=== PATIENT | male | born 1960 | race African-American/Black ===

== ENCOUNTER → 2021-10-31 | Outpatient (CLI) | payer BC ==
[~2021-10-31] MED LIST: AMLODIPINE BESYL5 MG PO; DOSS PO; FINASTERIDE5 MG PO; FISH OIL 1,0001 EAC3 PO; FISH OIL 1,0001 EACH PO; FLOMAX0.4 MG PO; LISINOPRIL10 MG PO; LISINOPRIL20 MG PO; NAPROSYN500 MG PO; NORCO 7.5-3251 EACH PO; NORVASC 5 MG TAB5 MG PO; PROSCAR PO; PROSCAR5 MG PO; SIMVASTATIN20 MG PO; TAMSULOSIN HCL0.4 MG PO; ZOCOR40 MG PO; ZOFRAN4 MG PO
== END ==
LOC: EXRD 13:29
DX: R06.00 Dyspnea, unspecified (principal); R91.8 Other nonspecific abnormal finding of lung field; U07.1 COVID-19; J12.82 Pneumonia due to coronavirus disease 2019
CPT/HCPCS: 71046; 94060; 94729; 95012

== ENCOUNTER → 2021-11-16 | Outpatient (CLI) | payer BC | LOC: KOH-I 11-11 14:30 | DX: R93.89 Abnormal findings on diagnostic imaging of other specified body structures (principal) | CPT/HCPCS: 71250 ==